=== PATIENT | male | born 1945 | race Caucasian/White ===

== ENCOUNTER 2023-01-21 10:33 | Inpatient (IN) | payer OTHER ==
[2023-01-21] MEDS ORDERED: Iopamidol 370 76% 100 ML VIAL ONE (10:48)
[2023-01-21 11:12] LABS: #Basophils 0.1 10x3/uL (0.0-0.2); #Eosinphils 0.1 10x3/uL (0.0-0.5); #Monocytes 0.8 10x3/uL (0.0-1.1); #Neutrophils 6.5 10x3/uL (1.5-8.4); %Basophils 0.7 % (0.0-2.0); %Lymphocytes 8.1 % (18.0-47.0); %Monocytes 9.4 % (0.0-10.0); %Neutrophils 80.4 % (40.0-75.0); Hemoglobin 10.8 g/dL (13.5-17.5); Mean Corpuscular HGB CONC 32.7 g/dL (32.0-36.0); Mean Corpuscular Hemoglobin 26.8 pg (27.0-33.0); Mean Corpuscular Volume 81.9 fl (81.2-95.1); Mean Platelet Volume 9.8 fl (7.4-10.4); Platelet Count 189 10x3/uL (150-450); RBC Distribution Width 13.8 % (11.5-14.5); Red Blood Cell (RBC) Count 4.03 10x6/uL (4.32-5.72); White Blood Cell (WBC) Count 8.1 10x3/uL (3.5-10.5)
[2023-01-21 11:32] LABS: ALT (SGPT) 14 U/L (8-55); AST (SGOT) 26 U/L (5-34); Albumin 3.3 g/dL (3.4-4.8); Alkaline Phosphatase 280 U/L (40-110); Anion Gap 15 mmol/L (10-20); BUN (Urea Nitrogen) 27 mg/dL (8.4-25.7); Bilirubin, Total 1.9 mg/dL (0.2-1.2); Calc. Creatinine Clearance 0 mL/min (70-130); Calcium 8.5 mg/dL (7.8-10.44); Carbon Dioxide 24 mmol/L (23-31); Chloride 97 mmol/L (98-107); Estimated GFR 42; Glucose 133 mg/dL (83-110); INR-International Normal Ratio 2.8; Magnesium 1.9 mg/dL (1.6-2.6); PTT 45.3 sec (22.0-33.0); Protein, Total 6.3 g/dL (5.8-8.1); Prothrombin Time 29.9 sec (9.5-12.1); Sodium 132 mmol/L (136-145)
[2023-01-21 11:38] LABS: Troponin I 0.015 ng/mL (< 0.028)
[2023-01-21 12:56] LABS: SARS-CoV-2 NAA Rapid Test Not Detected (NotDetected)
[2023-01-21 14:16] LABS: Troponin I Less than 0.010 ng/mL (< 0.028)
[2023-01-21] MEDS ORDERED: Furosemide 40 MG/4 ML VIAL ONE (14:31)
[2023-01-22] MEDS ORDERED: Furosemide 40 MG/4 ML VIAL ONE (08:28)
[2023-01-22] MEDS ORDERED: Metoprolol Tartrate 5 MG/5 ML VIAL ONE (09:21)
[2023-01-22] MEDS ORDERED: Senokot S 8.6-50 MG TAB PO PRN (10:49)
[2023-01-22] MEDS ORDERED: Acetaminophen 325 MG TAB PO PRN (10:49)
[2023-01-22] MEDS ORDERED: HYDROcodone/Acetaminophen 5/325 mg Tablet PO PRN (10:49)
[2023-01-22] MEDS ORDERED: Ondansetron PF 4 MG/2 ML Vial IVP PRN (10:49)
[2023-01-22 11:21] VITALS: BMI 25.5
[2023-01-22] MEDS ORDERED: FLU VACC QS2023(65UP)/MF59C/PF 60 MCG/0.5 ML SYRINGE IM ONE (11:45)
[2023-01-22] MEDS: Furosemide 40 MG/4 ML VIAL SLOW IVP SCH (15:12)
[2023-01-22] MEDS ORDERED: Warfarin Sodium 5 MG TAB PO SCH (17:00)
[2023-01-22] MEDS: Metoprolol Tartrate 5 MG/5 ML VIAL IVP PRN (21:41)
[2023-01-23] MEDS: Metoprolol Tartrate 5 MG/5 ML VIAL IVP PRN ×2 (04:25→19:43)
[2023-01-23] MEDS: Furosemide 40 MG/4 ML VIAL SLOW IVP SCH ×2 (05:49→11:43)
[2023-01-23 06:47] LABS: Anion Gap 17 mmol/L (10-20); BUN (Urea Nitrogen) 28 mg/dL (8.4-25.7); Calc. Creatinine Clearance 48 mL/min (70-130); Calcium 8.5 mg/dL (7.8-10.44); Carbon Dioxide 23 mmol/L (23-31); Chloride 95 mmol/L (98-107); Estimated GFR 44; Glucose 124 mg/dL (83-110); Magnesium 1.6 mg/dL (1.6-2.6); Potassium 3.6 mmol/L (3.5-5.1); Sodium 131 mmol/L (136-145)
[2023-01-23 07:03] LABS: #Basophils 0.1 10x3/uL (0.0-0.2); #Eosinphils 0.2 10x3/uL (0.0-0.5); #Monocytes 0.9 10x3/uL (0.0-1.1); #Neutrophils 6.9 10x3/uL (1.5-8.4); %Basophils 0.8 % (0.0-2.0); %Eosinophils 1.7 % (0.0-6.0); %Lymphocytes 6.8 % (18.0-47.0); %Monocytes 10.3 % (0.0-10.0); %Neutrophils 80.1 % (40.0-75.0); Hematocrit 31.3 % (38.8-50.0); Hemoglobin 10.4 g/dL (13.5-17.5); Mean Corpuscular HGB CONC 33.2 g/dL (32.0-36.0); Mean Corpuscular Hemoglobin 26.7 pg (27.0-33.0); Mean Corpuscular Volume 80.5 fl (81.2-95.1); Mean Platelet Volume 10.4 fl (7.4-10.4); Platelet Count 191 10x3/uL (150-450); RBC Distribution Width 13.8 % (11.5-14.5); Red Blood Cell (RBC) Count 3.89 10x6/uL (4.32-5.72); White Blood Cell (WBC) Count 8.6 10x3/uL (3.5-10.5)
[2023-01-23] MEDS ORDERED: Magnesium 2 GM/50 ML(in water) 2 GM in Premix 1 BAG IVPB SCH ×2 (08:00→12:00)
[2023-01-23 08:01] LABS: Prothrombin Time Greater than 90.0 sec (9.5-12.1)
[2023-01-23 09:39] LABS: INR-International Normal Ratio 2.2
[2023-01-23] MEDS ORDERED: Potassium Chloride 20 MEQ TAB PO SCH (11:00)
[2023-01-23] MEDS ORDERED: Magnesium 2 GM/50 ML BAG (IN WATER) ONE (11:41)
[2023-01-23] MEDS: Atorvastatin Calcium 40 MG TAB PO SCH (20:41)
[2023-01-23] MEDS ORDERED: Metoprolol Tartrate 5 MG/5 ML VIAL IVP SCH (21:45)
[2023-01-24] MEDS: Levothyroxine Sodium 25 MCG TAB PO SCH (05:04)
[2023-01-24] MEDS: Furosemide 40 MG/4 ML VIAL SLOW IVP SCH ×2 (05:04→15:13)
[2023-01-24 06:05] LABS: INR-International Normal Ratio 1.6; Prothrombin Time 17.5 sec (9.5-12.1)
[2023-01-24 06:19] LABS: #Basophils 0.1 10x3/uL (0.0-0.2); #Eosinphils 0.2 10x3/uL (0.0-0.5); #Monocytes 0.9 10x3/uL (0.0-1.1); #Neutrophils 7.8 10x3/uL (1.5-8.4); %Basophils 0.8 % (0.0-2.0); %Eosinophils 1.8 % (0.0-6.0); %Lymphocytes 8.2 % (18.0-47.0); %Monocytes 9.5 % (0.0-10.0); %Neutrophils 79.1 % (40.0-75.0); Hematocrit 32.9 % (38.8-50.0); Hemoglobin 10.8 g/dL (13.5-17.5); Mean Corpuscular HGB CONC 32.8 g/dL (32.0-36.0); Mean Corpuscular Hemoglobin 26.6 pg (27.0-33.0); Mean Platelet Volume 10.3 fl (7.4-10.4); Platelet Count 194 10x3/uL (150-450); Red Blood Cell (RBC) Count 4.06 10x6/uL (4.32-5.72); White Blood Cell (WBC) Count 9.9 10x3/uL (3.5-10.5)
[2023-01-24 06:20] LABS: Anion Gap 14 mmol/L (10-20); BUN (Urea Nitrogen) 29 mg/dL (8.4-25.7); Calc. Creatinine Clearance 51 mL/min (70-130); Calcium 8.6 mg/dL (7.8-10.44); Carbon Dioxide 26 mmol/L (23-31); Chloride 95 mmol/L (98-107); Estimated GFR 48; Glucose 130 mg/dL (83-110); Magnesium 2.2 mg/dL (1.6-2.6); Potassium 4.1 mmol/L (3.5-5.1); Sodium 131 mmol/L (136-145)
[2023-01-24] MEDS: Potassium Chloride 20 MEQ TAB PO SCH (09:12)
[2023-01-24] MEDS: Digoxin 0.125 MG TAB PO SCH (09:12)
[2023-01-24] MEDS ORDERED: Sodium Bicarbonate 2.5 MEQ/5 ML VIAL ONE (14:09)
[2023-01-24] MEDS ORDERED: Lidocaine 1% PF 5 ML VIAL ONE (14:09)
[2023-01-24] MEDS ORDERED: Warfarin Sodium 5 MG TAB PO SCH (17:00)
[2023-01-24] MEDS: Metoprolol Tartrate 5 MG/5 ML VIAL IVP PRN (18:47)
[2023-01-24] MEDS: Atorvastatin Calcium 40 MG TAB PO SCH (20:43)
[2023-01-25] MEDS: Metoprolol Tartrate 5 MG/5 ML VIAL IVP PRN (01:41)
[2023-01-25 05:58] LABS: #Basophils 0.1 10x3/uL (0.0-0.2); #Eosinphils 0.2 10x3/uL (0.0-0.5); #Monocytes 1.1 10x3/uL (0.0-1.1); #Neutrophils 7.2 10x3/uL (1.5-8.4); %Basophils 0.8 % (0.0-2.0); %Lymphocytes 9.9 % (18.0-47.0); %Monocytes 11.8 % (0.0-10.0); Mean Corpuscular HGB CONC 33.3 g/dL (32.0-36.0); Mean Corpuscular Hemoglobin 26.8 pg (27.0-33.0); Mean Corpuscular Volume 80.5 fl (81.2-95.1); Mean Platelet Volume 10.3 fl (7.4-10.4); Platelet Count 215 10x3/uL (150-450); RBC Distribution Width 14.1 % (11.5-14.5); White Blood Cell (WBC) Count 9.6 10x3/uL (3.5-10.5)
[2023-01-25 06:02] LABS: INR-International Normal Ratio 1.4; Prothrombin Time 15.1 sec (9.5-12.1)
[2023-01-25 06:08] LABS: Anion Gap 13 mmol/L (10-20); BUN (Urea Nitrogen) 31 mg/dL (8.4-25.7); Calc. Creatinine Clearance 48 mL/min (70-130); Calcium 8.5 mg/dL (7.8-10.44); Carbon Dioxide 28 mmol/L (23-31); Chloride 93 mmol/L (98-107); Estimated GFR 45; Glucose 115 mg/dL (83-110); Potassium 4.1 mmol/L (3.5-5.1); Sodium 130 mmol/L (136-145)
[2023-01-25] MEDS: Levothyroxine Sodium 25 MCG TAB PO SCH (06:12)
[2023-01-25] MEDS: Furosemide 40 MG/4 ML VIAL SLOW IVP SCH (06:12)
[2023-01-25] MEDS ORDERED: Digoxin 0.5 MG/2 ML AMP SLOW IVP SCH (09:15)
[2023-01-25] MEDS: Potassium Chloride 20 MEQ TAB PO SCH (09:24)
[2023-01-25] MEDS: Digoxin 0.125 MG TAB PO SCH (09:25)
[2023-01-25] MEDS: Furosemide 40 MG TAB PO SCH (14:45)
[2023-01-25] MEDS: Warfarin Sodium 10 MG TAB PO SCH (16:50)
[2023-01-25] MEDS: Atorvastatin Calcium 40 MG TAB PO SCH (20:45)
[2023-01-26 04:57] LABS: #Basophils 0.1 10x3/uL (0.0-0.2); #Eosinphils 0.2 10x3/uL (0.0-0.5); #Monocytes 1.3 10x3/uL (0.0-1.1); #Neutrophils 6.1 10x3/uL (1.5-8.4); %Basophils 1.1 % (0.0-2.0); %Eosinophils 2.7 % (0.0-6.0); %Lymphocytes 12.8 % (18.0-47.0); %Monocytes 14.1 % (0.0-10.0); %Neutrophils 68.7 % (40.0-75.0); Hematocrit 36.3 % (38.8-50.0); Mean Corpuscular HGB CONC 33.1 g/dL (32.0-36.0); Mean Corpuscular Hemoglobin 26.7 pg (27.0-33.0); Mean Corpuscular Volume 80.7 fl (81.2-95.1); Mean Platelet Volume 10.1 fl (7.4-10.4); Platelet Count 227 10x3/uL (150-450); RBC Distribution Width 14.1 % (11.5-14.5); White Blood Cell (WBC) Count 8.9 10x3/uL (3.5-10.5)
[2023-01-26 05:01] LABS: Anion Gap 15 mmol/L (10-20); BUN (Urea Nitrogen) 34 mg/dL (8.4-25.7); Calc. Creatinine Clearance 49 mL/min (70-130); Calcium 8.9 mg/dL (7.8-10.44); Carbon Dioxide 25 mmol/L (23-31); Chloride 93 mmol/L (98-107); Estimated GFR 45; Glucose 101 mg/dL (83-110); Potassium 4.2 mmol/L (3.5-5.1); Sodium 129 mmol/L (136-145)
[2023-01-26 05:02] LABS: INR-International Normal Ratio 1.5; Prothrombin Time 16.4 sec (9.5-12.1)
[2023-01-26] MEDS: Levothyroxine Sodium 25 MCG TAB PO SCH (05:45)
[2023-01-26] MEDS: Potassium Chloride 20 MEQ TAB PO SCH (08:43)
[2023-01-26] MEDS: Furosemide 40 MG TAB PO SCH ×2 (08:43→14:19)
[2023-01-26] MEDS: Digoxin 0.125 MG TAB PO SCH (08:44)
[2023-01-26] MEDS ORDERED: Digoxin 0.125 MG TAB PO SCH (09:30)
[2023-01-26] MEDS: Warfarin Sodium 10 MG TAB PO SCH (17:16)
[2023-01-26] MEDS: Docusate 100 MG CAP PO SCH (21:05)
[2023-01-27 03:56] LABS: INR-International Normal Ratio 2.3; Prothrombin Time 24.1 sec (9.5-12.1)
[2023-01-27 03:58] LABS: Anion Gap 18 mmol/L (10-20); BUN (Urea Nitrogen) 40 mg/dL (8.4-25.7); Calc. Creatinine Clearance 45 mL/min (70-130); Calcium 8.7 mg/dL (7.8-10.44); Carbon Dioxide 24 mmol/L (23-31); Chloride 95 mmol/L (98-107); Estimated GFR 41; Glucose 114 mg/dL (83-110); Potassium 4.9 mmol/L (3.5-5.1); Sodium 132 mmol/L (136-145)
[2023-01-27] MEDS: Levothyroxine Sodium 25 MCG TAB PO SCH (05:10)
[2023-01-27] MEDS: Potassium Chloride 20 MEQ TAB PO SCH (08:46)
[2023-01-27] MEDS: Furosemide 40 MG TAB PO SCH ×2 (08:46→14:49)
[2023-01-27] MEDS: Digoxin 0.25 MG TAB PO SCH (08:47)
[2023-01-27] MEDS: Atorvastatin Calcium 40 MG TAB PO SCH (08:47)
[2023-01-27] MEDS: Terazosin HCl 5 MG CAP PO SCH (08:47)
[2023-01-27] MEDS: DULoxetine 30 MG CAP PO SCH (08:48)
[2023-01-27] MEDS: Docusate 100 MG CAP PO SCH ×2 (08:48→20:38)
[2023-01-27] MEDS: Warfarin Sodium 2.5 MG TAB PO SCH (17:10)
[2023-01-28 03:50] LABS: INR-International Normal Ratio 2.9; Prothrombin Time 30.3 sec (9.5-12.1)
[2023-01-28] MEDS: Levothyroxine Sodium 25 MCG TAB PO SCH (05:22)
[2023-01-28] MEDS: Furosemide 40 MG TAB PO SCH ×3 (08:56→18:49)
[2023-01-28] MEDS: DULoxetine 30 MG CAP PO SCH (08:56)
[2023-01-28] MEDS: Docusate 100 MG CAP PO SCH ×2 (08:56→22:41)
[2023-01-28] MEDS: Terazosin HCl 5 MG CAP PO SCH (08:56)
[2023-01-28] MEDS: Atorvastatin Calcium 40 MG TAB PO SCH (08:56)
[2023-01-28] MEDS: Potassium Chloride 20 MEQ TAB PO SCH (08:56)
[2023-01-28] MEDS: Digoxin 0.25 MG TAB PO SCH (11:48)
[2023-01-28] MEDS: Warfarin Sodium 2.5 MG TAB PO SCH (18:48)
[2023-01-28 20:57] VITALS: BP 102/54; TEMP 98.1
[2023-01-29] MEDS ORDERED: Warfarin Sodium 5 MG TAB PO SCH (17:00)
== END 2023-01-28 19:50 | DRG 291 ==
LOC: CSHERS 10:33 → EEVIPCON 10:33 → CSHTELE 01-22 09:32
PROVIDERS: ADMIT Family Medicine; ATTEND Family Medicine
PROC: 0W993ZZ Drainage of Right Pleural Cavity, Percutaneous Approach (ICD-10-PCS; principal; 2023-01-24)
DX: I11.0 Hypertensive heart disease with heart failure (principal); I50.33 Acute on chronic diastolic (congestive) heart failure; C64.1 Malignant neoplasm of right kidney, except renal pelvis; I48.21 Permanent atrial fibrillation; J91.0 Malignant pleural effusion; N17.9 Acute kidney failure, unspecified; I25.10 Atherosclerotic heart disease of native coronary artery without angina pectoris; E78.5 Hyperlipidemia, unspecified; E03.9 Hypothyroidism, unspecified; I27.20 Pulmonary hypertension, unspecified; Z20.822 Contact with and (suspected) exposure to COVID-19; I48.0 Paroxysmal atrial fibrillation; Z90.5 Acquired absence of kidney; Z98.890 Other specified postprocedural states; Z88.0 Allergy status to penicillin; Z88.8 Allergy status to other drugs, medicaments and biological substances; Z79.899 Other long term (current) drug therapy; Z86.711 Personal history of pulmonary embolism
CPT/HCPCS: 32555; 36415; 36416; 71045; 71275; 80048; 80053; 83615; 83735; 83880; 84157; 84443; 84484; 85025; 85610; 85730; 87205; 88112; 88305; 93005; 93010; 93306; J1160; J1650; J1940; J3475; Q9967